=== PATIENT | female | born 1965 | race Two or more races ===

== ENCOUNTER 2020-09-09 10:50 | Outpatient (CLI) | payer OTHER | END 2020-09-09 10:59 | disposition home or self-care (01) | LOC: MAMO-SONO 10:50 | PROVIDERS: ATTEND Family Medicine | DX: Z12.31 Encounter for screening mammogram for malignant neoplasm of breast (principal); N64.59 Other signs and symptoms in breast; N60.11 Diffuse cystic mastopathy of right breast; N60.12 Diffuse cystic mastopathy of left breast ==

== ENCOUNTER 2021-12-14 10:51 | Outpatient (CLI) | payer OTHER | END 2021-12-14 10:52 | disposition home or self-care (01) | LOC: NUCLEAR 10:51 | DX: M81.0 Age-related osteoporosis without current pathological fracture (principal); M15.9 Polyosteoarthritis, unspecified ==

== ENCOUNTER 2023-03-28 11:13 | Outpatient (CLI) | payer OTHER | END 2023-03-28 16:20 | disposition home or self-care (01) | LOC: MAMO-SONO 11:13 | DX: N64.4 Mastodynia (principal); Z12.31 Encounter for screening mammogram for malignant neoplasm of breast ==

== ENCOUNTER 2024-10-19 07:26 | Outpatient (CLI) | payer OTHER | END 2024-10-19 07:28 | disposition home or self-care (01) | LOC: MRI 07:26 | PROVIDERS: ATTEND Internal Medicine | DX: R22.1 Localized swelling, mass and lump, neck (principal) | CPT/HCPCS: 70542 ==